=== PATIENT | male | born 1990 | race African-American/Black ===

== ENCOUNTER 2021-07-19 09:25 | Inpatient (IN) | payer OTHER ==
[2021-07-19] VITALS (12 sets, daily range): BP systolic 108–134; BP diastolic 54–94
[~2021-07-19] VITALS: Ht 165.1 cm; Wt 79.4 kg
[2021-07-19 10:16] LABS: URINE BLOOD 2+ (Negative); URINE CLARITY CLEAR; URINE COLOR YELLOW; URINE GLUCOSE-RANDOM 1+ (Negative); URINE LEUKOCYTES-REFLEX NEGATIVE (Negative); URINE NITRITE-REFLEX NEGATIVE (Negative); URINE PROTEIN 2+ (Negative); URINE SPECIFIC GRAVITY >= 1.030 (1.005-1.030); URINE UROBILINOGEN 0.2 E.U./dl (0.2-1.0)
[2021-07-19 10:17] LABS: ICTOTEST (BILI CONFIRMATORY) Negative (Negative); URINE BILIRUBIN 1+ (Negative); URINE KETONES 3+ (Negative)
[2021-07-19 10:18] LABS: SQUAMOUS 0-3 Few /LPF (0-3); URINE WBC-REFLEX None Seen /HPF (0-5)
[2021-07-19 10:19] LABS: URINE RBC 0-2 Rare /HPF (0-2)
[2021-07-19 10:20] LABS: FINE GRANULAR CASTS >10 Many /LPF (None Seen); MUCUS 0-3 Light strn/LPF (None Seen)
[2021-07-19 10:21] LABS: CRYSTALS None Seen /LPF (None Seen); HYALINE CASTS 0-3 Few /LPF (None Seen)
[2021-07-19 10:30] LABS: HEMATOCRIT 56.7 % (42.0-52.0); HEMOGLOBIN 18.5 gm/dL (14.0-18.0); MCH 28.8 pg (26.0-34.0); MCHC 32.6 g/dL (28.0-37.0); MCV 88.4 fL (80.0-100.0); NUCLEATED RBCS 0 /100WBC; PLATELET COUNT* 398 thou/uL (150-400); RBC 6.41 mil/uL (4.50-6.00); WBC 16.5 thou/uL (4.0-11.0)
[2021-07-19 10:40] LABS: CALCIUM 8.7 mg/dL (8.5-10.1); CREATININE 1.4 mg/dL (0.6-1.3)
[2021-07-19 10:42] LABS: POTASSIUM 6.1 mmol/L (3.5-5.1)
[2021-07-19 10:44] LABS: ALBUMIN 4.6 g/dL (3.4-5.0); MAGNESIUM 2.6 mg/dL (1.8-2.4); TOTAL BILIRUBIN 0.4 mg/dL (<0.1-1.0); TOTAL PROTEIN 10.1 g/dL (6.4-8.2)
[2021-07-19 10:55] LABS: ABSOLUTE LYMPHOCYTES 1.2 thou/uL (0.8-5.3); ABSOLUTE MONOCYTES 0.3 thou/uL (0.0-1.2)
[2021-07-19 10:56] LABS: PLATELET ESTIMATE ADEQUATE
[2021-07-19 11:50] LABS: BE -23.5 mmol/L (-2 to +3); PCO2 VENOUS 15.5 mmHg (41.0-51.0); PO2 VENOUS 101.5 mmHg (35.0-45.0)
[2021-07-19 13:47] LABS: CALCIUM 7.3 mg/dL (8.5-10.1); CREATININE 1.1 mg/dL (0.6-1.3)
[2021-07-19 13:48] LABS: POTASSIUM 3.7 mmol/L (3.5-5.1)
--- NOTE | 2021-07-19 15:55 | EKG ---
[place] [address] ELECTROCARDIOGRAM REPORT Name: XIAO OMER Room: [address] [place] ..#: [id number] Admission: 07/19/21 Attend Phys: Jessie Medina, Discharge: Date of : 89 Date of Service: 07/19/21 1147 Report #: [id number] THIS REPORT FOR: //name// [facility] ED Test Date: 2021-07-19 Test Time: 11:47:42 Pat Name: XIAO OMER Department: Room: [facility] Gender: M [employer] Sales Representative: : 1990 Requested By: Kit Gonzalez Order Number: [id number] MD: Forrest Dias Measurements Intervals [place] Rate: 104 P: 75 ID: [id number] QRS: 133 QRSD: 115 T: 38 QT: 383 QTc: 504 Interpretive Statements Sinus tachycardia Biatrial enlargement Nonspecific intraventricular conduction delay Inferior infarct, old ST elevation, consider early repolarization No previous ECG available for comparison Electronically Signed On 07-19-2021 15:54:47 ANIMAL TAXONOMIST by Forrset Dias [email or web address] <ELECTRONICALLY SIGNED> By: Forrest Dias MD, [facility] 07/19/21 1554 1147 1147 Forrest Dias MD, [facility] /EPI
[2021-07-19 16:57] LABS: ALBUMIN 2.9 g/dL (3.4-5.0); CALCIUM 7.3 mg/dL (8.5-10.1); CREATININE 0.9 mg/dL (0.6-1.3); MAGNESIUM 1.9 mg/dL (1.8-2.4); POTASSIUM 4.4 mmol/L (3.5-5.1)
[2021-07-19 19:36] LABS: CALCIUM 7.3 mg/dL (8.5-10.1); CREATININE 0.9 mg/dL (0.6-1.3); POTASSIUM 4.2 mmol/L (3.5-5.1)
[2021-07-19 20:39] LABS: ALBUMIN 2.8 g/dL (3.4-5.0); CALCIUM 7.1 mg/dL (8.5-10.1); CREATININE 0.9 mg/dL (0.6-1.3); MAGNESIUM 1.8 mg/dL (1.8-2.4); PHOSPHORUS* 1.6 mg/dL (2.5-4.9); POTASSIUM 3.8 mmol/L (3.5-5.1)
[2021-07-20] VITALS (22 sets, daily range): BP systolic 102–140; BP diastolic 51–115
[2021-07-20 02:17] LABS: ALBUMIN 2.7 g/dL (3.4-5.0); CALCIUM 7.3 mg/dL (8.5-10.1); CREATININE 0.8 mg/dL (0.6-1.3); MAGNESIUM 1.9 mg/dL (1.8-2.4); PHOSPHORUS* 1.5 mg/dL (2.5-4.9); POTASSIUM 3.3 mmol/L (3.5-5.1)
[2021-07-20 04:38] LABS: ABSOLUTE EOSINOPHILS 0.1 thou/uL (0.0-0.7); ABSOLUTE LYMPHOCYTES 1.1 thou/uL (0.8-5.3); ABSOLUTE MONOCYTES 1.2 thou/uL (0.0-1.2); ABSOLUTE NEUTROPHILS 9.6 thou/uL (1.6-8.1); BASOPHILS 0.3 %; EOSINOPHILS 0.7 %; HEMATOCRIT 36.6 % (42.0-52.0); LYMPHOCYTES 9.3 %; MCH 28.4 pg (26.0-34.0); MCHC 33.4 g/dL (28.0-37.0); MCV 85.1 fL (80.0-100.0); MONOCYTES 10.2 %; MPV 9.1 fl. (7.2-11.1); NUCLEATED RBCS 0 /100WBC; POLYS 79.5 %; RDW-CV 13.7 % (10.5-14.5)
[2021-07-20 04:55] LABS: HEMOGLOBIN 12.2 gm/dL (14.0-18.0); PLATELET COUNT* 246 thou/uL (150-400)
[2021-07-20 04:56] LABS: ALBUMIN 2.6 g/dL (3.4-5.0); ALKALINE PHOSPHATASE 79 U/L (46-116); ANION GAP 14 mmol/L (7-16); BUN 11 mg/dL (7-18); CALCIUM 7.3 mg/dL (8.5-10.1); CHLORIDE 100 mmol/L (98-107); CO2 16 mmol/L (21-32); CREATININE 0.9 mg/dL (0.6-1.3); GLUCOSE 236 mg/dL (70-99); MAGNESIUM 1.9 mg/dL (1.8-2.4); PHOSPHORUS* 2.2 mg/dL (2.5-4.9); POTASSIUM 3.6 mmol/L (3.5-5.1); SGOT 19 U/L (15-37); SGPT 24 U/L (30-65); SODIUM 130 mmol/L (136-145); TOTAL BILIRUBIN 0.4 mg/dL (<0.1-1.0); TOTAL PROTEIN 5.6 g/dL (6.4-8.2)
[2021-07-20 08:42] LABS: ALBUMIN 2.5 g/dL (3.4-5.0); CALCIUM 7.4 mg/dL (8.5-10.1); MAGNESIUM 2.1 mg/dL (1.8-2.4); PHOSPHORUS* 1.5 mg/dL (2.5-4.9); POTASSIUM 3.5 mmol/L (3.5-5.1)
[2021-07-20 13:01] LABS: ALBUMIN 2.8 g/dL (3.4-5.0); CALCIUM 7.8 mg/dL (8.5-10.1); CREATININE 0.8 mg/dL (0.6-1.3); MAGNESIUM 2.1 mg/dL (1.8-2.4); PHOSPHORUS* 1.2 mg/dL (2.5-4.9); POTASSIUM 3.2 mmol/L (3.5-5.1)
[2021-07-20 16:25] LABS: CALCIUM 7.8 mg/dL (8.5-10.1); CREATININE 0.7 mg/dL (0.6-1.3); MAGNESIUM 2.2 mg/dL (1.8-2.4); PHOSPHORUS* 1.4 mg/dL (2.5-4.9); POTASSIUM 3.7 mmol/L (3.5-5.1)
[2021-07-20 21:42] LABS: ALBUMIN 2.7 g/dL (3.4-5.0); CALCIUM 7.7 mg/dL (8.5-10.1); CREATININE 0.8 mg/dL (0.6-1.3); MAGNESIUM 2.1 mg/dL (1.8-2.4); PHOSPHORUS* 1.7 mg/dL (2.5-4.9); POTASSIUM 3.4 mmol/L (3.5-5.1)
[2021-07-21] VITALS (8 sets, daily range): BP systolic 119–153; BP diastolic 69–101
[2021-07-21 05:55] LABS: HEMOGLOBIN 12.4 gm/dL (14.0-18.0); MCH 28.4 pg (26.0-34.0); MCHC 33.5 g/dL (28.0-37.0); MCV 84.6 fL (80.0-100.0); MPV 9.1 fl. (7.2-11.1); RBC 4.38 mil/uL (4.50-6.00); RDW-CV 13.5 % (10.5-14.5); WBC 6.5 thou/uL (4.0-11.0)
[2021-07-21 06:06] LABS: ALBUMIN 2.9 g/dL (3.4-5.0); CALCIUM 7.9 mg/dL (8.5-10.1); CREATININE 0.7 mg/dL (0.6-1.3); POTASSIUM 3.7 mmol/L (3.5-5.1); TOTAL BILIRUBIN 0.3 mg/dL (<0.1-1.0)
[2021-07-21] MEDS ORDERED: HYDROCHLOROTHIAZIDE PO (12:44)
[2021-07-22 06:20] LABS: HEMATOCRIT 34.3 % (42.0-52.0); HEMOGLOBIN 11.6 gm/dL (14.0-18.0); MCH 28.6 pg (26.0-34.0); MCHC 33.9 g/dL (28.0-37.0); MCV 84.2 fL (80.0-100.0); MPV 8.8 fl. (7.2-11.1); RBC 4.07 mil/uL (4.50-6.00); RDW-CV 13.7 % (10.5-14.5); WBC 5.5 thou/uL (4.0-11.0)
[2021-07-22 07:23] LABS: ALBUMIN 2.7 g/dL (3.4-5.0); CALCIUM 7.8 mg/dL (8.5-10.1); CREATININE 0.6 mg/dL (0.6-1.3); POTASSIUM 3.4 mmol/L (3.5-5.1); TOTAL BILIRUBIN 0.2 mg/dL (<0.1-1.0); TOTAL PROTEIN 5.7 g/dL (6.4-8.2)
[2021-07-22] MEDS ORDERED: NOVOLOG100 UNIT/M SUBQ (09:05)
[2021-07-22] MEDS ORDERED: BACTRIM DS TAB1 EAC1 PO (09:05)
[2021-07-22] MEDS ORDERED: LANTUS SUBQ (09:05)
[2021-07-22 09:10] VITALS: BP 104/67
[2021-07-22 11:55] VITALS: BP 138/83
[2021-07-22 13:11] VITALS: BP 138/83
[2021-07-22] MEDS ORDERED: HUMALOG100 UNIT/1 SUBQ (14:49)
[2021-07-22] MEDS ORDERED: LANTUS100 UNIT/M SUBQ (14:49)
== END 2021-07-22 14:00 | disposition home or self-care (01) | DRG 637 ==
LOC: M.ERS 09:25 → M.TBA-ER 10:59 → M.ICU 10:59 → M.2W 07-21 15:38
PROVIDERS: Emergency Medicine Emergency Medical Services; ADMIT Internal Medicine; ATTEND Internal Medicine
PROC: 05HC33Z Insertion of Infusion Device into Left Basilic Vein, Percutaneous Approach (ICD-10-PCS; principal; 2021-07-19)
DX: E10.10 Type 1 diabetes mellitus with ketoacidosis without coma (principal); N17.0 Acute kidney failure with tubular necrosis; R65.10 Systemic inflammatory response syndrome (SIRS) of non-infectious origin without acute organ dysfunction; E87.1 Hypo-osmolality and hyponatremia; Z20.822 Contact with and (suspected) exposure to COVID-19; I10 Essential (primary) hypertension; E86.0 Dehydration; E87.5 Hyperkalemia; Z79.899 Other long term (current) drug therapy; Z83.3 Family history of diabetes mellitus